=== PATIENT | male | born 1960 | race Caucasian/White ===

== ENCOUNTER 2018-01-11 18:00 | Inpatient (IN) | payer SELFPAY ==
[~2018-01-11] VITALS: Ht 170.2 cm; Wt 142.7 kg
[~2018-01-11 18:00] MED LIST: METF850T2 PO; SIMV10TA6 PO; SITA50TA3 PO
[2018-01-11 20:15] LABS: EOSINOPHILS % 2.4 % (0.0-5.0); HEMATOCRIT. 39.7 % (42.0-52.0); HEMOGLOBIN. 13.6 g/dL (14.0-18.0); LYMPHOCYTES % 47.6 % (20.0-50.0); MEAN CORPUSCULAR HEMOGLOBIN 29.5 pg (28.0-32.0); MEAN CORPUSCULAR VOLUME 86.1 fL (80.0-94.0); MEAN PLATELET VOLUME 7.4 fl (7.4-10.4); MONOCYTES % 5.3 % (2.0-8.0); NEUTROPHILS % 43.7 % (40.0-76.0)
[2018-01-11 20:22] LABS: CHLORIDE 102 mEq/L (98-107)
[2018-01-11] MEDS ORDERED: CALCIUM GLUCONATE 100MG/ML 10ML VIAL IV ONE (20:45)
[2018-01-11] MEDS ORDERED: IPRATROPIUM/ALBUTEROL 0.5-3(2.5)MG/3ML NEB INH PRN (21:30)
[2018-01-11] MEDS ORDERED: MAGNESIUM/ALUMINUM HYDROXIDE/SIMETHICONE 30ML UDC PO PRN (21:30)
[2018-01-11] MEDS ORDERED: ONDANSETRON 4MG ODT PO PRN (21:30)
[2018-01-11] MEDS ORDERED: DOCUSATE SODIUM 100MG CAPSULE PO PRN (21:30)
[2018-01-11] MEDS ORDERED: CLONIDINE 0.1MG TABLET PO PRN (21:30)
[2018-01-11 23:30] VITALS: BP 129/79
[2018-01-11] MEDS: ACETAMINOPHEN 325MG TABLET PO PRN (23:31)
[2018-01-11 23:48] LABS: CREATINE KINASE 287 IU/L (39-308)
[2018-01-11 23:49] LABS: CREATINE KINASE MB FRACTION 1.8 ng/mL (0.5-3.6)
[2018-01-12] VITALS: BP 129/79
[2018-01-12 04:00] VITALS: BP 111/69
[2018-01-12 06:35] LABS: CHLORIDE 99 mEq/L (98-107)
[2018-01-12 06:45] LABS: BASOPHILS % 0.8 % (0.0-2.0); EOSINOPHILS % 2.9 % (0.0-5.0); HEMATOCRIT. 36.7 % (42.0-52.0); HEMOGLOBIN. 12.6 g/dL (14.0-18.0); LYMPHOCYTES % 39.4 % (20.0-50.0); MEAN CORPUSCULAR HEMOGLOBIN 29.6 pg (28.0-32.0); MEAN CORPUSCULAR VOLUME 86.5 fL (80.0-94.0); MEAN PLATELET VOLUME 7.7 fl (7.4-10.4); NEUTROPHILS % 47.9 % (40.0-76.0); RED BLOOD CELL COUNT 4.25 mill/uL (4.7-6.1); RED CELL DISTRIBUTION WIDTH 16.9 % (11.6-14.6)
[2018-01-12 06:51] LABS: LDL CHOLESTEROL 89 mg/dL (5-100)
[2018-01-12 06:52] LABS: CREATINE KINASE 241 IU/L (39-308)
[2018-01-12 06:53] LABS: HDL CHOLESTEROL 22 mg/dL (40-59)
[2018-01-12 06:56] LABS: CREATINE KINASE MB FRACTION 1.2 ng/mL (0.5-3.6)
[2018-01-12] MEDS ORDERED: DEXTROSE 50% WATER 50ML SYRINGE IV PRN (07:00)
[2018-01-12] MEDS: BLOOD SUGAR DIAGNOSTIC STRIP TEST SCH ×4 (07:04→20:52)
[2018-01-12 08:00] VITALS: BP 99/50
[2018-01-12] MEDS: THIAMINE HCL 100MG TABLET PO SCH (08:45)
[2018-01-12] MEDS: ACETAMINOPHEN 325MG TABLET PO PRN ×3 (08:45→20:51)
[2018-01-12] MEDS: MULTIVITAMINS,THER W-MINERALS TABLET PO SCH (08:45)
[2018-01-12] MEDS: FOLIC ACID 1MG TABLET PO SCH (08:45)
[2018-01-12] MEDS: INSULIN LISPRO 100 UNITS/ML SUBCUT SCH ×4 (08:45→20:48)
[2018-01-12] MEDS ORDERED: POTASSIUM CHLORIDE 20MEQ TABLET SR PO NR (10:11)
[2018-01-12 11:49] LABS: VITAMIN B12 SERUM 589 pg/mL (211-911)
[2018-01-12 11:51] LABS: FERRITIN 58 ng/mL (22-322)
[2018-01-12 12:00] VITALS: BP 118/86
[2018-01-12 12:02] LABS: HEPATITIS B SURFACE ANTIGEN NEGATIVE
[2018-01-12 12:12] LABS: PLATELET ESTIMATE MARKEDLY DECREASED
[2018-01-12 12:14] LABS: PLATELET 37 x1000/uL (130-400)
[2018-01-12 12:29] LABS: HEPATITIS B CORE AB IGM NEGATIVE
[2018-01-12 12:31] LABS: HEPATITIS A AB IGM NEGATIVE (NEGATIVE)
[2018-01-12 12:54] LABS: TOTAL IRON BINDING CAPACITY 336 ug/dL (250-450)
[2018-01-12 13:22] LABS: PLATELET 47 x1000/uL (130-400)
[2018-01-12] MEDS: PANTOPRAZOLE SODIUM 40 MG/VIAL IV SCH (13:37)
[2018-01-12 15:05] LABS: HEMATOCRIT. 37.9 % (42.0-52.0); HEMOGLOBIN. 13.1 g/dL (14.0-18.0); MEAN CORPUSCULAR HEMOGLOBIN 29.6 pg (28.0-32.0); RED BLOOD CELL COUNT 4.41 mill/uL (4.7-6.1); RED CELL DISTRIBUTION WIDTH 16.6 % (11.6-14.6)
[2018-01-12 15:08] LABS: PLATELET 38 x1000/uL (130-400)
[2018-01-12 15:17] LABS: AMMONIA 57 uMol/L (<32)
[2018-01-12 16:42] LABS: PLATELET ESTIMATE MARKEDLY DECREASED
[2018-01-12 20:17] VITALS: BP 108/61
[2018-01-12 23:58] VITALS: BP 115/63
[2018-01-13 04:00] VITALS: BP 126/72
[2018-01-13] MEDS: BLOOD SUGAR DIAGNOSTIC STRIP TEST SCH ×4 (05:48→21:00)
[2018-01-13 07:24] LABS: INR 1.2; PARTIAL THROMBOPLASTIN TIME 25.7 sec (23.4-31.0); PROTHROMBIN TIME 11.6 sec (9.1-11.1)
[2018-01-13 07:50] LABS: CHLORIDE 100 mEq/L (98-107)
[2018-01-13 08:00] VITALS: BP 130/76
[2018-01-13 08:33] LABS: HEMATOCRIT. 38.9 % (42.0-52.0); HEMOGLOBIN. 13.5 g/dL (14.0-18.0); MEAN CORPUSCULAR HEMOGLOBIN 29.8 pg (28.0-32.0); MEAN CORPUSCULAR VOLUME 86.2 fL (80.0-94.0); MEAN PLATELET VOLUME 8.9 fl (7.4-10.4); RED BLOOD CELL COUNT 4.52 mill/uL (4.7-6.1); RED CELL DISTRIBUTION WIDTH 16.5 % (11.6-14.6)
[2018-01-13] MEDS: PANTOPRAZOLE SODIUM 40 MG/VIAL IV SCH (08:46)
[2018-01-13] MEDS: INSULIN LISPRO 100 UNITS/ML SUBCUT SCH ×4 (08:46→21:59)
[2018-01-13] MEDS: THIAMINE HCL 100MG TABLET PO SCH (08:46)
[2018-01-13] MEDS: MULTIVITAMINS,THER W-MINERALS TABLET PO SCH (08:46)
[2018-01-13] MEDS: FOLIC ACID 1MG TABLET PO SCH (08:46)
[2018-01-13 08:50] LABS: PLATELET 32 x1000/uL (130-400)
[2018-01-13 09:39] LABS: PLATELET ESTIMATE MARKEDLY DECREASED
[2018-01-13 12:00] VITALS: BP 129/72
[2018-01-13] MEDS ORDERED: DEXTROSE 50% WATER 50ML SYRINGE IV PRN (13:00)
[2018-01-13] MEDS: MORPHINE SULFATE 4 MG/ML CPJ (NOT FOR IM USE) IV PRN ×2 (13:04→22:00)
[2018-01-13] MEDS: LACTULOSE 20G/30ML UDC PO SCH ×2 (13:12→17:07)
[2018-01-13 16:00] VITALS: BP 147/68
[2018-01-13] MEDS ORDERED: BLOOD SUGAR DIAGNOSTIC STRIP TEST SCH (17:40)
[2018-01-13 20:00] VITALS: BP 136/81
[2018-01-13] MEDS ORDERED: POTASSIUM CHLORIDE 20MEQ TABLET SR PO NR (20:42)
[2018-01-13 22:41] VITALS: BP 136/81
[2018-01-14 04:00] VITALS: BP 114/61
[2018-01-14] MEDS: BLOOD SUGAR DIAGNOSTIC STRIP TEST SCH ×4 (07:40→20:35)
[2018-01-14 07:48] LABS: AMMONIA 70 uMol/L (<32)
[2018-01-14 08:00] VITALS: BP 112/63
[2018-01-14 08:10] LABS: BASOPHILS % 0.7 % (0.0-2.0); EOSINOPHILS % 4.2 % (0.0-5.0); HEMATOCRIT. 39.3 % (42.0-52.0); HEMOGLOBIN. 13.7 g/dL (14.0-18.0); LYMPHOCYTES % 29.2 % (20.0-50.0); MEAN CORPUSCULAR HEMOGLOBIN 30.2 pg (28.0-32.0); MEAN CORPUSCULAR VOLUME 86.9 fL (80.0-94.0); MEAN PLATELET VOLUME 7.9 fl (7.4-10.4); MONOCYTES % 11.2 % (2.0-8.0); NEUTROPHILS % 54.7 % (40.0-76.0); RED BLOOD CELL COUNT 4.52 mill/uL (4.7-6.1); RED CELL DISTRIBUTION WIDTH 16.6 % (11.6-14.6)
[2018-01-14 08:13] LABS: CHLORIDE 100 mEq/L (98-107)
[2018-01-14 08:17] LABS: PLATELET 31 x1000/uL (130-400)
[2018-01-14] MEDS: PANTOPRAZOLE SODIUM 40 MG/VIAL IV SCH (10:17)
[2018-01-14] MEDS: LACTULOSE 20G/30ML UDC PO SCH ×2 (10:17→18:05)
[2018-01-14] MEDS: THIAMINE HCL 100MG TABLET PO SCH (10:17)
[2018-01-14] MEDS: FOLIC ACID 1MG TABLET PO SCH (10:18)
[2018-01-14] MEDS: MULTIVITAMINS,THER W-MINERALS TABLET PO SCH (10:18)
[2018-01-14] MEDS: INSULIN LISPRO 100 UNITS/ML SUBCUT SCH ×4 (10:19→20:36)
[2018-01-14 12:00] VITALS: BP 115/74
[2018-01-14 13:46] LABS: PLATELET ESTIMATE MARKEDLY DECREASED
[2018-01-14] MEDS: INSULIN NPH (HUMULIN-N) 100 UNITS/ML 3ML VIAL SUBCUT SCH ×2 (14:03→20:42)
[2018-01-14] MEDS ORDERED: FOLI-43 PO (15:27)
[2018-01-14] MEDS ORDERED: THIA100T72 PO (15:27)
[2018-01-14] MEDS ORDERED: FAMO20TA8 PO (15:27)
[2018-01-14] MEDS ORDERED: LACT10SO7 PO (15:27)
[2018-01-14 16:00] VITALS: BP 146/77
[2018-01-14 20:00] VITALS: BP 134/87
[2018-01-15] VITALS: BP 124/68
[2018-01-15 04:48] VITALS: BP 126/72
[2018-01-15] MEDS: BLOOD SUGAR DIAGNOSTIC STRIP TEST SCH ×2 (06:41→13:36)
[2018-01-15 07:20] LABS: BASOPHILS % 0.5 % (0.0-2.0); EOSINOPHILS % 3.7 % (0.0-5.0); HEMATOCRIT. 40.7 % (42.0-52.0); HEMOGLOBIN. 14.1 g/dL (14.0-18.0); LYMPHOCYTES % 31.2 % (20.0-50.0); MEAN CORPUSCULAR HEMOGLOBIN 30.4 pg (28.0-32.0); MEAN CORPUSCULAR VOLUME 87.4 fL (80.0-94.0); MEAN PLATELET VOLUME 7.9 fl (7.4-10.4); MONOCYTES % 10.8 % (2.0-8.0); NEUTROPHILS % 53.8 % (40.0-76.0); RED BLOOD CELL COUNT 4.65 mill/uL (4.7-6.1); RED CELL DISTRIBUTION WIDTH 17.3 % (11.6-14.6)
[2018-01-15 07:27] LABS: CHLORIDE 100 mEq/L (98-107)
[2018-01-15 08:00] VITALS: BP 131/69
[2018-01-15 08:16] LABS: PLATELET 31 x1000/uL (130-400)
[2018-01-15] MEDS ORDERED: INSULIN NPH (HUMULIN-N) 100 UNITS/ML 3ML VIAL SUBCUT SCH (09:00)
[2018-01-15] MEDS ORDERED: FAMOTIDINE 20MG TABLET PO SCH (09:00)
[2018-01-15] MEDS: MULTIVITAMINS,THER W-MINERALS TABLET PO SCH (09:14)
[2018-01-15] MEDS: THIAMINE HCL 100MG TABLET PO SCH (09:14)
[2018-01-15] MEDS: LACTULOSE 20G/30ML UDC PO SCH ×2 (09:14→14:26)
[2018-01-15] MEDS: FOLIC ACID 1MG TABLET PO SCH (09:14)
[2018-01-15] MEDS: INSULIN LISPRO 100 UNITS/ML SUBCUT SCH ×2 (09:16→14:26)
[2018-01-15 12:00] VITALS: BP 128/85
== END 2018-01-15 16:25 | disposition home or self-care (01) | DRG 347 ==
LOC: ER 18:00 → 7WST 21:23 → EDBEDREQ 21:26 → EDBEDREQTM 21:26 → ENRESERV 21:45
PROVIDERS: ADMIT Internal Medicine; ATTEND Internal Medicine
DX: M50.31 Other cervical disc degeneration, high cervical region (principal); D69.59 Other secondary thrombocytopenia; E83.51 Hypocalcemia; E11.65 Type 2 diabetes mellitus with hyperglycemia; R16.1 Splenomegaly, not elsewhere classified; K70.30 Alcoholic cirrhosis of liver without ascites; G31.9 Degenerative disease of nervous system, unspecified; R74.0 Nonspecific elevation of levels of transaminase and lactic acid dehydrogenase [LDH]; Z96.653 Presence of artificial knee joint, bilateral; M51.37 Other intervertebral disc degeneration, lumbosacral region; F17.210 Nicotine dependence, cigarettes, uncomplicated; E87.6 Hypokalemia; I10 Essential (primary) hypertension; Z79.84 Long term (current) use of oral hypoglycemic drugs; Z86.73 Personal history of transient ischemic attack (TIA), and cerebral infarction without residual deficits; Z91.14 Patient's other noncompliance with medication regimen
CPT/HCPCS: 36415; 70450; 70551; 71045; 72141; 72146; 72148; 73030; 76700; 80048; 80053; 80061; 80076; 82140; 82248; 82330; 82550; 82553; 82607; 82728; 82746; 82962; 83036; 83540; 83550; 83970; 84443; 84484; 85007; 85025; 85027; 85610; 85730; 86705; 86709; 86803; 87340; 93005; 93970; 96374; 97116; 97162; 99285; C9113; J0610; J1815; J2270

== ENCOUNTER 2018-09-05 06:00 | Emergency (ER) | payer MEDICARE, MEDICAID ==
[~2018-09-05] VITALS: Ht 170.2 cm; Wt 91.0 kg
[~2018-09-05 06:00] MED LIST changes: +FAMO20TA8 PO; +FOLI-43 PO; +LACT10SO7 PO; +METF-415 PO; -METF850T2 PO; +THIA100T72 PO
[2018-09-05 06:56] LABS: HEMOGLOBIN. 9.6 g/dL (14.0-18.0); MEAN CORPUSCULAR HEMOGLOBIN 25.7 pg (28.0-32.0); MEAN CORPUSCULAR VOLUME 80.5 fL (80.0-94.0); MEAN PLATELET VOLUME 7.9 fl (7.4-10.4); PLATELET 64 x1000/uL (130-400); RED BLOOD CELL COUNT 3.72 mill/uL (4.7-6.1); RED CELL DISTRIBUTION WIDTH 16.2 % (11.6-14.6)
[2018-09-05 07:02] LABS: CHLORIDE 109 mEq/L (98-107)
[2018-09-05 07:05] LABS: ETHANOL BLOOD 299 mg/dL
[2018-09-05 07:31] LABS: PLATELET ESTIMATE DECREASED
[2018-09-05] MEDS ORDERED: CHLORDIAZEPOXIDE 25MG CAPSULE PO ONE (08:15)
[2018-09-05 12:20] VITALS: BP 105/78
== END 2018-09-05 12:23 | disposition home or self-care (01) ==
LOC: ER 06:00
DX: T51.91XA Toxic effect of unspecified alcohol, accidental (unintentional), initial encounter (principal); E11.9 Type 2 diabetes mellitus without complications; Z79.899 Other long term (current) drug therapy; Y92.89 Other specified places as the place of occurrence of the external cause
CPT/HCPCS: 36415; 74176; 80320; 99284; G0480

== ENCOUNTER 2018-11-14 17:19 | Inpatient (IN) | payer MEDICAID, MEDICARE ==
[~2018-11-14] VITALS: Ht 167.6 cm; Wt 76.2 kg
[2018-11-14] MEDS ORDERED: KETOROLAC 30MG/ML VIAL IV STA (19:10)
[2018-11-14] MEDS ORDERED: SODIUM CHLORIDE 0.9% 1,000 ML IV ONE (19:10)
[2018-11-14] MEDS ORDERED: INSULIN REGULAR (HUMULIN R) UD 100 UNITS/ML SYR SUBCUT ONE (19:15)
[2018-11-14 19:27] LABS: HEMATOCRIT. 23.5 % (42.0-52.0); HEMOGLOBIN. 7.3 g/dL (14.0-18.0); MEAN CORPUSCULAR HEMOGLOBIN 26.2 pg (28.0-32.0); MEAN CORPUSCULAR VOLUME 83.8 fL (80.0-94.0); MEAN PLATELET VOLUME 8.3 fl (7.4-10.4); RED CELL DISTRIBUTION WIDTH 24.9 % (11.6-14.6)
[2018-11-14 19:32] LABS: CHLORIDE 99 mEq/L (98-107)
[2018-11-14 19:36] LABS: ETHANOL BLOOD 244 mg/dL; INR 1.2; PARTIAL THROMBOPLASTIN TIME 27.1 sec (23.4-31.0); PROTHROMBIN TIME 12.3 sec (9.6-11.0)
[2018-11-14 19:45] LABS: PLATELET 41 x1000/uL (130-400)
[2018-11-14] MEDS ORDERED: KETOROLAC 15MG/ML VIAL IV STA (19:53)
[2018-11-14 20:00] LABS: *BARBITURATES SCREEN URINE NEGATIVE (NEGATIVE); *BENZODIAZEPINES SCREEN URINE NEGATIVE (NEGATIVE); *COCAINE SCREEN URINE NEGATIVE (NEGATIVE); METHADONE URINE SCREEN NEGATIVE (NEGATIVE); OPIATES URINE SCREEN NEGATIVE (NEGATIVE)
[2018-11-14] MEDS ORDERED: INSULIN REGULAR (HUMULIN R) 300UNITS/3ML SUBCUT ONE (20:00)
[2018-11-14 20:02] LABS: *AMPHETAMINES SCREEN URINE NEGATIVE (NEGATIVE); CANNABINOID URINE SCREEN NEGATIVE (NEGATIVE); PHENCYCLIDINE URINE SCREEN NEGATIVE (NEGATIVE)
[2018-11-14 21:18] LABS: PLATELET ESTIMATE MARKEDLY DECREASED
[2018-11-14] MEDS ORDERED: POTASSIUM CHLORIDE 20MEQ TABLET SR PO ONE (23:30)
[2018-11-15 01:30] VITALS: BP 113/62
[2018-11-15] MEDS ORDERED: INSU100I28 SQ (02:15)
[2018-11-15] MEDS ORDERED: GLIP5TAB12 PO (02:16)
[2018-11-15] MEDS ORDERED: HYDROCODONE/ACETAMINOPHEN 5/325MG TABLET PO PRN (02:30)
[2018-11-15] MEDS ORDERED: DEXTROSE 50% WATER 50ML SYRINGE IV PRN (02:30)
[2018-11-15] MEDS ORDERED: ONDANSETRON HCL 4MG/2ML INJ IV PRN (02:30)
[2018-11-15 04:00] VITALS: BP 102/49
[2018-11-15] MEDS: BLOOD SUGAR DIAGNOSTIC STRIP TEST SCH ×4 (06:35→21:28)
[2018-11-15] MEDS: OMEPRAZOLE 20MG CAPSULE EXTENDED RELEASE PO SCH (06:35)
[2018-11-15 08:00] VITALS: BP 120/70
[2018-11-15] MEDS ORDERED: LORAZEPAM 2MG/ML CPJ IV PRN (08:00)
[2018-11-15] MEDS ORDERED: INSULIN GLARGINE UD 100 UNITS/ML SYR SUBCUT SCH ×2 (09:00→10:00)
[2018-11-15] MEDS: METFORMIN HCL 500MG TABLET PO SCH ×2 (10:09→17:13)
[2018-11-15] MEDS: FOLIC ACID 1 MG, THIAMINE HCL 100 MG, MVI, ADULT NO.1 10 ML in DEXTROSE 5% WATER 1,000 ML IV SCH ×4 (10:11)
[2018-11-15] MEDS: INSULIN GLARGINE UD 100 UNITS/ML SYR SUBCUT SCH ×2 (10:11→21:30)
[2018-11-15] MEDS: INSULIN LISPRO 100 UNITS/ML SUBCUT SCH ×5 (10:13→21:29)
[2018-11-15 10:57] LABS: CHLORIDE 100 mEq/L (98-107)
[2018-11-15 11:09] LABS: TOTAL IRON BINDING CAPACITY 364 ug/dL (250-450)
[2018-11-15 11:11] LABS: HEMATOCRIT 22.8 % (42.0-52.0); HEMOGLOBIN 7.2 g/dL (14.0-18.0); MEAN CORPUSCULAR HEMOGLOBIN 26.2 pg (28.0-32.0); MEAN CORPUSCULAR VOLUME 83.3 fL (80.0-94.0); RED BLOOD CELL COUNT 2.74 mill/uL (4.7-6.1); RED CELL DISTRIBUTION WIDTH 24.7 % (11.6-14.6)
[2018-11-15 11:17] LABS: FOLIC ACID (FOLATE) SERUM 5.7 ng/mL (>5.38)
[2018-11-15 11:38] LABS: PLATELET 31 x1000/uL (130-400)
[2018-11-15 12:00] VITALS: BP 127/75
[2018-11-15] MEDS: FERROUS SULFATE 325MG TABLET PO SCH ×2 (12:50→17:13)
[2018-11-15] MEDS: CHLORDIAZEPOXIDE 5 MG CAPSULE PO SCH ×2 (12:50→21:28)
[2018-11-15 16:30] VITALS: BP 126/52
[2018-11-15] MEDS: DOCUSATE SODIUM 100MG CAPSULE PO SCH (17:13)
[2018-11-15 20:24] VITALS: BP 128/83
[2018-11-16] VITALS: BP 125/63
[2018-11-16 04:00] VITALS: BP 115/52
[2018-11-16 06:25] LABS: HEMATOCRIT. 22.2 % (42.0-52.0); HEMOGLOBIN. 7.1 g/dL (14.0-18.0); MEAN CORPUSCULAR HEMOGLOBIN 26.7 pg (28.0-32.0); RED BLOOD CELL COUNT 2.67 mill/uL (4.7-6.1)
[2018-11-16 06:30] LABS: CHLORIDE 99 mEq/L (98-107)
[2018-11-16] MEDS: CHLORDIAZEPOXIDE 5 MG CAPSULE PO SCH ×2 (06:34→12:25)
[2018-11-16] MEDS: OMEPRAZOLE 20MG CAPSULE EXTENDED RELEASE PO SCH (06:34)
[2018-11-16] MEDS: BLOOD SUGAR DIAGNOSTIC STRIP TEST SCH ×2 (06:35→12:31)
[2018-11-16 07:39] LABS: PLATELET 32 x1000/uL (130-400)
[2018-11-16 08:03] VITALS: BP 110/54
[2018-11-16] MEDS: METFORMIN HCL 500MG TABLET PO SCH (08:54)
[2018-11-16] MEDS: FERROUS SULFATE 325MG TABLET PO SCH ×2 (08:54→12:50)
[2018-11-16] MEDS: INSULIN LISPRO 100 UNITS/ML SUBCUT SCH ×4 (08:56→12:50)
[2018-11-16] MEDS: FOLIC ACID 1 MG, THIAMINE HCL 100 MG, MVI, ADULT NO.1 10 ML in DEXTROSE 5% WATER 1,000 ML IV SCH ×4 (08:57)
[2018-11-16] MEDS: DOCUSATE SODIUM 100MG CAPSULE PO SCH (12:24)
[2018-11-16] MEDS: INSULIN GLARGINE UD 100 UNITS/ML SYR SUBCUT SCH (12:26)
[2018-11-16 12:27] VITALS: BP 121/61
[2018-11-16 13:47] LABS: PLATELET ESTIMATE MARKEDLY DECREASED
[2018-11-16 14:02] VITALS: BP 121/61
[2018-11-16 16:28] VITALS: BP 117/70
== END 2018-11-16 16:39 | DRG 808 ==
LOC: ER 17:19 → 6WST 23:21 → EDBEDREQTM 23:27 → EDBEDREQ 23:27 → ENRESERV 11-15
PROVIDERS: ADMIT Internal Medicine; ATTEND Internal Medicine
DX: D61.818 Other pancytopenia (principal); E43 Unspecified severe protein-calorie malnutrition; E87.6 Hypokalemia; K74.60 Unspecified cirrhosis of liver; M48.02 Spinal stenosis, cervical region; F10.10 Alcohol abuse, uncomplicated; E11.8 Type 2 diabetes mellitus with unspecified complications; Y90.8 Blood alcohol level of 240 mg/100 ml or more; Z96.659 Presence of unspecified artificial knee joint; W18.39XA Other fall on same level, initial encounter; Y93.89 Activity, other specified; Y92.89 Other specified places as the place of occurrence of the external cause; Y99.8 Other external cause status; Z86.73 Personal history of transient ischemic attack (TIA), and cerebral infarction without residual deficits; Z79.84 Long term (current) use of oral hypoglycemic drugs; Z79.4 Long term (current) use of insulin; Z79.899 Other long term (current) drug therapy; Z68.27 Body mass index [BMI] 27.0-27.9, adult
CPT/HCPCS: 36415; 71045; 72100; 73030; 73521; 73560; 76700; 80048; 80305; 80320; 82607; 82746; 82962; 83036; 83540; 83550; 83880; 84484; 85027; 86850; 86900; 93005; 93970; 96361; 96372; 96374; 97162; 97530; 99285; J1815; J1885; J3411; J3490; J7030; J7070; G0480

== ENCOUNTER 2019-02-12 16:05 | Emergency (ER) | payer MEDICARE, MEDICAID ==
[~2019-02-12] VITALS: Ht 170.2 cm; Wt 100.0 kg
[~2019-02-12 16:05] MED LIST changes: +GLIP5TAB12 PO; +INSU100I28 SQ
[2019-02-12] MEDS ORDERED: FAMOTIDINE 20MG TABLET PO STA (16:35)
[2019-02-12] MEDS ORDERED: SODIUM CHLORIDE 0.9% 1,000 ML IV ONE ×2 (16:35→17:45)
[2019-02-12] MEDS ORDERED: ONDANSETRON HCL 4MG/2ML INJ IV STA (16:35)
[2019-02-12 17:06] LABS: BASOPHILS % 0.8 % (0.0-2.0); EOSINOPHILS % 3.8 % (0.0-5.0); HEMATOCRIT. 26.8 % (42.0-52.0); LYMPHOCYTES % 41.5 % (20.0-50.0); MEAN CORPUSCULAR VOLUME 80.8 fL (80.0-94.0); MEAN PLATELET VOLUME 7.7 fl (7.4-10.4); MONOCYTES % 10.6 % (2.0-8.0); NEUTROPHILS % 43.3 % (40.0-76.0); PLATELET 57 x1000/uL (130-400); RED BLOOD CELL COUNT 3.32 mill/uL (4.7-6.1); RED CELL DISTRIBUTION WIDTH 20.1 % (11.6-14.6)
[2019-02-12 17:12] LABS: CHLORIDE 106 mEq/L (98-107)
[2019-02-12 17:14] LABS: ETHANOL BLOOD 265 mg/dL
[2019-02-12 17:26] LABS: INR 1.4
[2019-02-12] MEDS ORDERED: IOHEXOL-300 100 ML BOTTLE ONE (19:26)
[2019-02-12 19:55] LABS: CLARITY URINE CLEAR (CLEAR); COLOR URINE YELLOW (YELLOW); KETONES URINE NEGATIVE (NEGATIVE); LEUKOCYTE ESTERASE URINE NEGATIVE (NEGATIVE); NITRITE URINE NEGATIVE (NEGATIVE); OCCULT BLOOD URINE NEGATIVE (NEGATIVE); PROTEIN URINE NEGATIVE (NEGATIVE); SPECIFIC GRAVITY URINE 1.005 (1.005-1.030)
[2019-02-12 20:08] LABS: *AMPHETAMINES SCREEN URINE NEGATIVE (NEGATIVE); *BARBITURATES SCREEN URINE NEGATIVE (NEGATIVE); *BENZODIAZEPINES SCREEN URINE NEGATIVE (NEGATIVE); *COCAINE SCREEN URINE NEGATIVE (NEGATIVE); METHADONE URINE SCREEN NEGATIVE (NEGATIVE); OPIATES URINE SCREEN NEGATIVE (NEGATIVE)
[2019-02-12 20:09] LABS: CANNABINOID URINE SCREEN NEGATIVE (NEGATIVE); PHENCYCLIDINE URINE SCREEN NEGATIVE (NEGATIVE)
[2019-02-13 04:30] VITALS: BP 106/73
== END 2019-02-13 04:32 | disposition home or self-care (01) ==
LOC: ER 16:05 → EDBEDREQ 19:32 → ER 02-13 04:32 → CANBEDREQ 02-13 05:46
DX: F10.129 Alcohol abuse with intoxication, unspecified (principal); D61.818 Other pancytopenia; R79.89 Other specified abnormal findings of blood chemistry; R53.83 Other fatigue; R47.81 Slurred speech; E11.9 Type 2 diabetes mellitus without complications; K76.9 Liver disease, unspecified; Z86.73 Personal history of transient ischemic attack (TIA), and cerebral infarction without residual deficits; Z79.899 Other long term (current) drug therapy; Z79.4 Long term (current) use of insulin; Y90.8 Blood alcohol level of 240 mg/100 ml or more
CPT/HCPCS: 36415; 70450; 71045; 74177; 80053; 80305; 80320; 81003; 82962; 83605; 83690; 85025; 85610; 86850; 86900; 86901; 93005; 96361; 96374; 99284; J2405; J7030; Q9967; G0480

== ENCOUNTER 2019-02-14 19:12 | Emergency (ER) | payer MEDICARE, MEDICAID ==
[~2019-02-14] VITALS: Ht 170.2 cm; Wt 77.0 kg
[2019-02-14] MEDS ORDERED: FOLIC ACID 1 MG, THIAMINE HCL 100 MG, MVI, ADULT NO.1 10 ML in DEXTROSE 5% WATER 1,000 ML IV ONE ×4 (21:00)
[2019-02-14] MEDS ORDERED: ONDANSETRON HCL 4MG/2ML INJ IV ONE (21:00)
[2019-02-14 21:25] LABS: BASOPHILS % 0.6 % (0.0-2.0); EOSINOPHILS % 2.6 % (0.0-5.0); HEMATOCRIT. 29.8 % (42.0-52.0); HEMOGLOBIN. 9.8 g/dL (14.0-18.0); LYMPHOCYTES % 32.8 % (20.0-50.0); MEAN CORPUSCULAR VOLUME 81.7 fL (80.0-94.0); MEAN PLATELET VOLUME 8.5 fl (7.4-10.4); MONOCYTES % 9.7 % (2.0-8.0); NEUTROPHILS % 54.3 % (40.0-76.0); RED BLOOD CELL COUNT 3.64 mill/uL (4.7-6.1); RED CELL DISTRIBUTION WIDTH 20.5 % (11.6-14.6)
[2019-02-14 21:26] LABS: CHLORIDE 112 mEq/L (98-107)
[2019-02-14 21:36] LABS: ETHANOL BLOOD 295 mg/dL
[2019-02-14 22:07] LABS: *AMPHETAMINES SCREEN URINE NEGATIVE (NEGATIVE)
[2019-02-14 22:08] LABS: *BARBITURATES SCREEN URINE NEGATIVE (NEGATIVE); *BENZODIAZEPINES SCREEN URINE NEGATIVE (NEGATIVE); *COCAINE SCREEN URINE NEGATIVE (NEGATIVE); CANNABINOID URINE SCREEN NEGATIVE (NEGATIVE); METHADONE URINE SCREEN NEGATIVE (NEGATIVE); OPIATES URINE SCREEN NEGATIVE (NEGATIVE); PHENCYCLIDINE URINE SCREEN NEGATIVE (NEGATIVE)
[2019-02-14 22:15] LABS: PLATELET 43 x1000/uL (130-400)
[2019-02-15 05:03] VITALS: BP 122/68
== END 2019-02-14 20:02 | disposition home or self-care (01) ==
LOC: ER 19:12
DX: T51.0X1A Toxic effect of ethanol, accidental (unintentional), initial encounter (principal); F10.129 Alcohol abuse with intoxication, unspecified; G92 Toxic encephalopathy; E11.65 Type 2 diabetes mellitus with hyperglycemia; D61.818 Other pancytopenia; Y90.8 Blood alcohol level of 240 mg/100 ml or more; Y92.89 Other specified places as the place of occurrence of the external cause; Z79.4 Long term (current) use of insulin
CPT/HCPCS: 36415; 70450; 80048; 80305; 80307; 80320; 80329; 85025; 96365; 96366; 96375; 99284; J2405; J3411; J3490; J7070; G0480